=== PATIENT | female | born 1940 | race Caucasian/White ===

== ENCOUNTER 2017-01-10 08:30 | Emergency (ER) | payer MEDICARE, BC ==
[2017-01-10 08:44] LABS: Urine Bilirubin Negative (NEGATIVE); Urine Blood 50 /ul (NEGATIVE); Urine Ketone Negative (NEGATIVE); Urine Nitrite Negative (NEGATIVE); Urine Protein Negative (NEGATIVE); Urine Urobilinogen Normal (NORMAL)
[2017-01-10 08:52] LABS: Urine Appearance Slightly Cloudy; Urine Bacteria 1+; Urine Color Yellow
--- NOTE | 2017-01-10 09:51 | ERNOTE ---
ER Female HPI Stated Complaint: BLADDER INFECTION/HIGH BLOOD SUGAR Presenting Symptoms: dysuria Time Seen by Provider: 01/10/17 09:49 Source: patient, RN notes reviewed Exam Limitations: no limitations Immunizations: IMMUNIZATION HX Immunizations Up to Date Yes History of Influenza Vaccine Yes Hx Pneumococcal Vaccination Yes Allergies/Adverse Reactions: Allergies Penicillins Allergy (Verified 01/10/17 08:40) Anaphylaxis Home Medications: HOME MEDICATIONS Fluticasone/Salmeterol [Advair 250-50 Diskus] 1 puff IH BID 10/14/14 [Last Taken Unknown] Levothyroxine Sodium [Synthroid] 50 mcg PO DAILY 10/14/14 [Last Taken Unknown] Oxybutynin Chloride [Ditropan] 5 mg PO TID 10/14/14 [Last Taken Unknown] Furosemide [Lasix] 80 mg PO BID #60 tab 11/10/14 [Last Taken Unknown] Potassium Chloride [K-Dur] 20 meq PO DAILY #30 tablet.sa 11/10/14 [Last Taken Unknown] Acetaminophen [Tylenol] 650 mg PO Q6H PRN 01/10/17 [Last Taken Unknown] Lansoprazole [Prevacid] 30 mg PO DAILY 01/10/17 [Last Taken Unknown] Levofloxacin 250 mg PO DAILY #7 tablet 01/10/17 [Last Taken Unknown] Losartan Potassium [Cozaar] 25 mg PO DAILY 01/10/17 [Last Taken Unknown] Rosuvastatin Calcium [Crestor] 5 mg PO DAILY 01/10/17 [Last Taken Unknown] Venlafaxine HCl [Venlafaxine HCl ER] 75 mg PO DAILY 01/10/17 [Last Taken Unknown ] Warfarin Sodium [Coumadin] 4 mg PO DAILY@1700 01/10/17 [Last Taken Unknown] glipiZIDE [Glipizide] 5 mg PO BID 01/10/17 [Last Taken Unknown] - History of Present Illness Narrative: Patient states she had a bladder infection 6 weeks ago, she feels like she has one again and she wants it straightened out. She also had a steroid injection Wednesday and wanted to see how her blood sugar is doing. Patient recently had a CT scan that showed a lesion on her pancreas, is scheduled to be seen in [place] this coming week. Timing: Present: constant, getting worse Quality: Present: moderate Onset Location: Present: suprapubic Radiation: Present: none Activities at Onset: Present: none Prior Abdominal Problems: Present: similar symptoms Modifying Factors - (Worsens): Present: urinating Associated Symptoms: Present: abdominal pain, dysuria, urinary frequency Review of Systems - Review of Systems Constitutional: Absent: recent illness, fever, chills, weakness, fatigue EYE: Present: no symptoms reported ENT: Absent: ear pain, sore throat Respiratory: Absent: shortness of breath, cough Cardiology: Absent: chest pain Gastrointestinal/Abdominal: Present: abdominal pain. Absent: nausea, vomiting, diarrhea Genitourinary: Present: frequency, pain, dysuria Musculoskeletal: Absent: back pain, muscle pain, muscle stiffness Skin: Present: no symptoms reported Neurological: Present: no symptoms reported Endocrine: Present: increased thirst Hematologic/Lymphatic: Present: no symptoms reported Psych: Present: no symptoms reported - Patient's Past Medical History Patient History - Medical: Arthritis, Diabetes Type 2 Insulin Dependent, Depression, GERD, Hypothyroidism, Kidney stone, UTI'S, Other Patient History - Cardiac/Respiratory: Hypertension Patient History - Cancer: Melanoma Patient History - Surgical Procedures: Appendectomy, Colonoscopy, Hysterectomy, Total Knee Replacement, Other - Family History Mother Family History - Medical: Father Family History - Medical: Other - Social History Living Situations: home Abuse History: No History of abuse Psych History: No pertinent hx - Immunizations Immunizations Up to Date: Yes Hx Pneumococcal Vaccination: Yes History of Influenza Vaccine: Yes Physical Exam - Physical Exam General Appearance: Present: wd/wn, alert, no apparent distress, obese Head Exam: Present: normal inspection, no evidence of injury Eye Exam: Normal inspection: bilateral, PERRL: bilateral, EOMI: bilateral Ears, Nose, Throat: Present: normal ENT inspection Neck: Present: normal inspection, nontender Respiratory: Present: no respiratory distress, normal breath sounds, no accessory muscle use, chest nontender, lungs clear Cardiovascular/Chest: Present: regular rate, rhythm, no murmur Gastrointestinal/Abdominal: Present: normal bowel sounds, nontender, nondistended, soft Back Exam: Present: normal inspection, normal range of motion, other - negative Shabbir's bilaterally Extremity Exam: Present: normal inspection, non-tender, normal range of motion, no edema Neurological Exam: Present: alert, oriented, normal mood/affect, no motor/ sensory deficits Skin Exam: Present: normal color, warm/dry ED Progress - Results and Orders Patient's Lab Results:: I have reviewed the patient's lab results. Results and Orders: Laboratory Tests 01/10/17 08:33 Urine Color Yellow Urine Appearance Slightly cloudy Urine pH 6.0 Ur Specific [place] 1.020 Urine Protein Negative Urine Glucose (UA) Negative Urine Ketones Negative Urine Blood 50 H Urine Nitrate Negative Urine Bilirubin Negative Urine Urobilinogen Normal Ur Leukocyte Esterase 75 H Urine RBC 5-10 H Urine WBC 5-10 H Ur Epithelial Cells 0-5 Urine Bacteria 1+ H Urine Culture Comments Culture to follow - Vital Signs Patient's Vital Signs:: I have reviewed the patient's vital signs. Vital Signs: Vital Signs 01/10/17 01/10/17 01/10/17 08:36 09:08 09:40 Temperature 36.6 C 36.7 C Pulse Rate 74 76 78 Respiratory 12 12 12 Rate Blood Pressure 167/76 164/72 162/70 O2 Sat by Pulse 93 94 94 Oximetry - Progress/Reassessment Chief Complaint: Genitourinary Problem Departure Clinical Impression: Urinary tract infection Qualifiers: Urinary tract infection type: acute cystitis Hematuria presence: with hematuria Qualified Code(s): N30.01 - Acute cystitis with hematuria - Departure Disposition: Home self-care Condition: Good Instructions: Urinary Tract Infection, Adult, [id number] Referrals: Omer Cruz MD [Associate] - (7-10 days) José Miguel Hagan MD [Primary Care Provider] - (as scheduled) Prescriptions: Levofloxacin 250 mg PO DAILY #7 tablet
[2017-01-10 10:13] VITALS: BP 153/83
== END 2017-01-10 10:35 | disposition home or self-care (01) ==
LOC: ER 08:30
DX: N30.01 Acute cystitis with hematuria (principal); Z87.440 Personal history of urinary (tract) infections; Z87.442 Personal history of urinary calculi; Z85.820 Personal history of malignant melanoma of skin; Z79.01 Long term (current) use of anticoagulants; I10 Essential (primary) hypertension; E03.9 Hypothyroidism, unspecified; K21.9 Gastro-esophageal reflux disease without esophagitis